=== PATIENT | female | born 1985 | race Caucasian/White ===

== ENCOUNTER 2016-11-11 06:20 | Day surgery (SDC) | payer OTHER ==
[2016-11-08 08:58] LABS: HEMOGLOBIN 13.4 g/dL (11.7-16.4)
[2016-11-08 09:11] LABS: BLOOD UREA NITROGEN 13 mg/dL (7-18)
[~2016-11-11] VITALS: Ht 163.8 cm; Wt 71.0 kg
[~2016-11-11 06:20] MED LIST: ASPI-496 PO; CHOL5000 PO; FOLI0.8T2 PO; LEVO137T2 PO; MAGN100T PO; METF500T4 PO; PREN-1 PO
[2016-11-11] MEDS ORDERED: LACTATED RINGERS 1,000 ML IV SCH ×2 (06:29→06:39)
[2016-11-11 06:39] VITALS: BP 124/82
[2016-11-11] MEDS ORDERED: BUPIVACAINE/PF 0.25% ONE (06:59)
[2016-11-11] MEDS ORDERED: OXYTOCIN 10 UNITS/ML, 1ML ONE (06:59)
[2016-11-11 07:31] LABS: HCG UR OBC PASS
[2016-11-11] MEDS ORDERED: FENTANYL PF 100 MCG/2ML ONE ×2 (07:55)
[2016-11-11] MEDS ORDERED: MIDAZOLAM 1 MG/ML, 2ML ONE ×2 (07:55)
[2016-11-11] MEDS ORDERED: CEFAZOLIN 1,000 MG ONE (07:58)
[2016-11-11] MEDS ORDERED: PROPOFOL 10 MG/ML, 20ML ONE (07:58)
[2016-11-11] MEDS ORDERED: ONDANSETRON 2MG/ML, 2ML ONE (07:58)
[2016-11-11] MEDS ORDERED: KETOROLAC 30 MG/1 ML ONE (07:58)
[2016-11-11] MEDS ORDERED: DEXAMETHASONE 4 MG/ML, 5ML ONE (07:58)
[2016-11-11] MEDS ORDERED: METOCLOPRAMIDE 5 MG/ML, 2ML ONE (07:58)
[2016-11-11] MEDS ORDERED: LABETALOL 5MG/ML, 20ML IV PRN (09:00)
[2016-11-11] MEDS ORDERED: PROMETHAZINE 25 MG/ML, 1ML IV PRN (09:00)
[2016-11-11] MEDS ORDERED: HYDROmorphone 1 MG/ML, 1ML IV PRN (09:00)
[2016-11-11] MEDS ORDERED: FENTANYL PF 100 MCG/2ML IV PRN (09:00)
[2016-11-11] MEDS ORDERED: ONDANSETRON 2MG/ML, 2ML IVPush PRN (09:00)
[2016-11-11] MEDS ORDERED: MEPERIDINE/PF 25MG/0.5ML IVPush PRN (09:00)
[2016-11-11] MEDS ORDERED: ACETAMINOPHEN 325 MG TABLET PO PRN (09:00)
[2016-11-11] MEDS ORDERED: OXYcodone 5 MG/5 ML ORAL.SOL UDC PO PRN (09:00)
[2016-11-11] MEDS ORDERED: hydrALAzine 20 MG/ML, 1ML IV PRN (09:00)
== END 2016-11-11 10:45 | disposition home or self-care (01) ==
LOC: OUT 06:20
PROVIDERS: ATTEND Obstetrics & Gynecology
DX: N92.6 Irregular menstruation, unspecified (principal); O26.21 Pregnancy care for patient with recurrent pregnancy loss, first trimester; I10 Essential (primary) hypertension; E11.9 Type 2 diabetes mellitus without complications; E03.9 Hypothyroidism, unspecified; Z3A.08 8 weeks gestation of pregnancy
CPT/HCPCS: 36415; 58558; 80048; 81025; 82962; 84702; 85025; 88305; J0690; J1100; J1885; J2405; J2590; J2704; J2765; J3490; J7120; J2250; J3010